=== PATIENT | female | born 2000 | race Caucasian/White ===

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

== ENCOUNTER 2023-02-10 11:11 | Emergency (ER) | payer OTHER ==
[2023-02-10 11:54] VITALS: RESP 18; TEMP 98.4
[2023-02-10] MEDS ORDERED: ONDANSETRON 4 MG/2 ML VIAL IVP STA (12:53)
[2023-02-10] MEDS ORDERED: KETOROLAC 15 MG/ML 1 ML VIAL IVP STA (12:53)
[2023-02-10] MEDS ORDERED: SODIUM CHLORIDE 0.9% 1,000 ML IV STA (12:53)
[2023-02-10 13:26] LABS: Basophils % (A) 0 %; Eosinophils # (A) 0.2 k/uL (0-0.7); Eosinophils % (A) 2 %; HCT 38.9 % (34.0-46.0); HGB 13.1 gm/dL (11.4-16.0); Lymphocytes # (A) 2.3 k/uL (1.0-4.8); Lymphocytes % (A) 30 %; MCH 29.5 pg (25.0-35.0); MCHC 33.7 g/dL (31.0-37.0); MCV 87.5 fL (80.0-100.0); Mean Platelet Volume 8.1; Monocytes # (A) 0.4 k/uL (0-1.0); Monocytes % (A) 5 %; Neutrophils # (A) 4.6 k/uL (1.3-7.7); Neutrophils % (A) 61 %; Platelet Count 322 k/uL (150-450); RBC 4.45 m/uL (3.80-5.40); RDW 11.9 % (11.5-15.5); WBC 7.6 k/uL (4.0-11.0)
[2023-02-10 13:49] LABS: ALT 14 U/L (4-34); AST 20 U/L (14-36); African American GFR (CKD) >90 (>60 ml/min/1.73 sqM); Alkaline Phosphatase 79 U/L (38-126); Amylase 66 U/L (30-110); Anion Gap 12 mmol/L; Blood Urea Nitrogen 8 mg/dL (7-17); Calcium 9.3 mg/dL (8.4-10.2); Carbon Dioxide 24 mmol/L (22-30); Chloride 103 mmol/L (98-107); Glucose 112 mg/dL (74-99); Lipase 119 U/L (23-300); Non-African American GFR(CKD) >90 (>60 ml/min/1.73 sqM); Sodium 139 mmol/L (137-145); Total Bilirubin 0.7 mg/dL (0.2-1.3); Total Protein 7.2 g/dL (6.3-8.2)
[2023-02-10 14:58] LABS: Amorphous Sediment,Urine Rare /hpf; Appearance,Urine Turbid (Clear); Bacteria,Urine Occasional /hpf; Bilirubin,Urine Negative (Negative); Blood,Urine Large (Negative); Color,Urine Yellow; Glucose,Urine (UA) Negative (Negative); Ketones,Urine 1+ (Negative); Leukocyte Esterase,Urine Negative (Negative); Mucus,Urine Many /hpf; Nitrite,Urine Positive (Negative); PH, Urine 5.5 (5.0-8.0); Protein,Urine Trace (Negative); RBC,Urine 3 /hpf (0-5); Specific Gravity,Urine 1.024 (1.001-1.035); Squamous Epithelial Cell,Urine 1 /hpf (0-4); Urobilinogen,Urine <2.0 mg/dL (<2.0); WBC,Urine 10 /hpf (0-5)
[2023-02-10] MEDS ORDERED: cefTRIAXone IN SWFI 1,000 MG/10 ML SYRINGE IVP STA (15:10)
[2023-02-10] MEDS ORDERED: ONDANSETRON 4 MG ODT STARTER PACK 2 TAB BTL PO STA (15:11)
--- NOTE | 2023-02-10 15:13 | ED ---
Nausea/Vomiting/Diarrhea HPI - General Chief complaint: Nausea/Vomiting/Diarrhea Stated complaint: cough throat pain nausea Time Seen by Provider: 02/10/23 12:19 Source: patient, RN notes reviewed Mode of arrival: ambulatory Limitations: no limitations - History of Present Illness Initial comments: This is a 22-year-old female who presents to the emergency department for a cough, congestion, sore throat, nausea, vomiting, and reduced appetite. She ref ers to her symptoms as "COVID symptoms". Denies any fevers, chills, or sick contacts. Also reports body aches. Her largest concern is about the nausea and not being able to eat, she feels very dehydrated and had a presyncopal episode yesterday as a result. She has had multiple negative home Covid tests. MD complaint: nausea, vomiting - Related Data Home Medications Medication Instructions Recorded Confirmed Ibuprofen [Motrin Ib] 400 mg PO Q8H PRN 11/15/20 12/21/20 Previous Rx's Medication Instructions Recorded Amoxicillin 875 mg PO Q12HR #20 tablet 12/21/20 Ondansetron Odt [Zofran Odt] 4 mg PO Q8HR PRN #15 tab 02/10/23 Sulfamethox-Tmp 800-160Mg [Bactrim 1 tab PO Q12HR 7 Days #14 tab 02/10/23 DS 800-160 mg] Allergies Allergy/AdvReac Type Severity Reaction Status Date / Time animal dander Allergy Rash/Hives Verified 12/21/20 13:38 Review of Systems ROS Statement: Those systems with pertinent positive or pertinent negative responses have been documented in the HPI. ROS Other: All systems not noted in ROS Statement are negative. Past Medical History Past Medical History: Asthma History of Any Multi-Drug Resistant Organisms: None Reported Past Surgical History: No Surgical Hx Reported Past Psychological History: Anxiety, Bipolar, Depression, Panic Disorder, PTSD Smoking Status: Vaper Past Alcohol Use History: None Reported Past Drug Use History: None Reported General Exam Limitations: no limitations General appearance: alert, in no apparent distress Head exam: Present: atraumatic, normocephalic, normal inspection Respiratory exam: Present: normal lung sounds bilaterally. Absent: respiratory distress, wheezes, rales, rhonchi, stridor Cardiovascular Exam: Present: regular rate, normal rhythm, normal heart sounds. Absent: systolic murmur, diastolic murmur, rubs, gallop, clicks GI/Abdominal exam: Present: soft, normal bowel sounds. Absent: distended, tenderness, guarding, rebound, rigid Neurological exam: Present: alert, oriented X3, CN II-XII intact Psychiatric exam: Present: normal affect, normal mood Skin exam: Present: warm, dry, intact, normal color. Absent: rash Course Vital Signs 02/10/23 02/10/23 11:50 14:52 Temperature 98.4 F Pulse Rate 89 67 Respiratory 18 18 Rate Blood Pressure 114/79 99/66 O2 Sat by Pulse 99 98 Oximetry Medical Decision Making - Medical Decision Making This is a 22-year-old female who presents to the emergency department for nausea, vomiting, coughing, and congestion. Was pt. sent in by a medical professional or institution? @ -No Did you speak to anyone other than the patient for history? @ -No Did you review nursing and triage notes? @ -Yes, and I agree, it is accurate with regards to the patient's symptoms. Were old charts reviewed? @ -No Differential Diagnosis? @ -Differential Nausea and Vomiting: Gastroenteritis, cholecystitis, appendicitis, pancreatitis, migraine, benign positional vertigo, food borne illness, pyelonephritis, irritable bowel syndrome, influenza, Covid, GERD, incarcerated hernia, intestinal obstruction, this is not meant to be an all-inclusive list. EKG interpreted by me (3pts min.)? @ -Not obtained X-rays interpreted by me (1pt min.)? @ -Not obtained CT interpreted by me (1pt min.)? @ -Not obtained U/S interpreted by me (1pt. min.)? @ -Not obtained What testing was considered but not performed? (CT, X-rays, U/S, labs)? Why? @ -None What meds were considered but not given? Why? @ -None Did you discuss the management of the patient with other professionals? @ -No Did you reconcile home meds? @ -No Was smoking cessation discussed for >3mins.? @ -No Was critical care preformed (if so, how long)? @ -No Were there social determinants of health that impacted care today? How? (Homelessness, low income, unemployed, alcoholism, drug addiction, transportation, low edu. Level, literacy, decrease access to med. care, snf, rehab)? @ -No Was there de-escalation of care discussed even if they declined? (Discuss DNR or withdrawal of care, Hospice)? @ -No What co-morbidities impacted this encounter? (DM, HTN, Smoking, COPD, CAD, Cancer, CVA, Hep., AIDS, mental health diagnosis, sleep apnea, morbid obesity)? @ -Asthma Was patient admitted / discharged? @ -Discharged. Lab work obtained and found to be unremarkable. Covid, influenza, and RSV testing were negative. Heterophile negative. Urinalysis is consistent with infection. Urine sent for culture. Her symptoms were well co ntrolled with IV fluids, Toradol, and Zofran. She was given a dose of ceftriaxone in the emergency department prior to discharge. Prescription for Bactrim and Zofran provided with dosing instructions reviewed. She is advised to slowly advance her diet as tolerated and remain well-hydrated. Patient otherwise discharged home in stable condition. Undiagnosed new problem with uncertain prognosis? @ -None Drug Therapy requiring intensive monitoring for toxicity (Heparin, Nitro, Insulin, Cardizem)? @ -None Were any procedures done? @ -None Diagnosis/symptom? @ -UTI, nausea/vomiting, viral URI Acute, or Chronic, or Acute on Chronic? @ -Acute Uncomplicated (without systemic symptoms) or Complicated (systemic symptoms)? @ -Uncomplicated Side effects of treatment? @ -None Exacerbation, Progression, or Severe Exacerbation] @ -Not applicable Poses a threat to life or bodily function? @ -No Return precautions reviewed in depth, the patient is instructed to return to the emergency department with any new, worsening, or concerning symptoms. Patient verbalized understanding. This case was discussed in detail with the attending ED physician, Dr. Polk. Presentation, findings, and treatment plan discussed in detail as well. - Lab Data Result diagrams: 02/10/23 13:02 02/10/23 13:02 Lab Results 02/10/23 02/10/23 02/10/23 Range/Units 13:02 13: 13:02 WBC 7.6 (4.0-11.0) k/uL RBC 4.45 (3.80-5.40) m/uL Hgb 13.1 (11.4-16.0) gm/dL Hct 38.9 (34.0-46.0) % MCV 87.5 (80.0-100.0) fL MCH 29.5 (25.0-35.0) pg MCHC 33.7 (31.0-37.0) g/dL RDW 11.9 (11.5-15.5) % Plt Count 322 (150-450) k/uL MPV 8.1 Neutrophils % 61 % Lymphocytes % 30 % Monocytes % 5 % Eosinophils % 2 % Basophils % 0 % Neutrophils # 4.6 (1.3-7.7) k/uL Lymphocytes # 2.3 (1.0-4.8) k/uL Monocytes # 0.4 (0-1.0) k/uL Eosinophils # 0.2 (0-0.7) k/uL Basophils # 0.0 (0-0.2) k/uL Sodium (137-145) mmol/L Potassium (3.5-5.1) mmol/L Chloride (98-107) mmol/L Carbon Dioxide (22-30) mmol/L Anion Gap mmol/L BUN (7-17) mg/dL Creatinine (0.52-1.04) mg/dL Est GFR (CKD-EPI)AfAm (>60 ml/min/1.73 sqM) Est GFR (CKD-EPI)NonAf (>60 ml/min/1.73 sqM) Glucose (74-99) mg/dL Calcium (8.4-10.2) mg/dL Total Bilirubin (0.2-1.3) mg/dL AST (14-36) U/L ALT (4-34) U/L Alkaline Phosphatase (38-126) U/L Total Protein (6.3-8.2) g/dL Albumin (3.5-5.0) g/dL Amylase (30-110) U/L Lipase (23-300) U/L Urine Color Yellow Urine Appearance Turbid H (Clear) Urine pH 5.5 (5.0-8.0) Ur Specific [place] 1.024 (1.001-1.035) Urine Protein Trace H (Negative) Urine Glucose (UA) Negative (Negative) Urine Ketones 1+ H (Negative) Urine Blood Large H (Negative) Urine Nitrite Positive H (Negative) Urine Bilirubin Negative (Negative) Urine Urobilinogen <2.0 (<2.0) mg/dL Ur Leukocyte Esterase Negative (Negative) Urine RBC 3 (0-5) /hpf Urine WBC 10 H (0-5) /hpf Ur Squamous Epith Cells 1 (0-4) /hpf Amorphous Sediment Rare H (None) /hpf Urine Bacteria Occasional H (None) /hpf Urine Mucus Many H (None) /hpf Urine HCG, Qual (Not Detectd) Heterophile Antibody Negative (Negative) Influenza Type A (PCR) (Not Detectd) Influenza Type B (PCR) (Not Detectd) RSV (PCR) (Not Detectd) SARS-CoV-2 (PCR) (Not Detectd) Group A Strep (PCR) (Not Detectd) 02/10/23 02/10/23 02/10/23 Range/Units 13:02 13:02 13:02 WBC (4.0-11.0) k/uL RBC (3.80-5.40) m/uL Hgb (11.4-16.0) gm/dL Hct (34.0-46.0) % MCV (80.0-100.0) fL MCH (25.0-35.0) pg MCHC (31.0-37.0) g/dL RDW (11.5-15.5) % Plt Count (150-450) k/uL MPV Neutrophils % % Lymphocytes % % Monocytes % % Eosinophils % % Basophils % % Neutrophils # (1.3-7.7) k/uL Lymphocytes # (1.0-4.8) k/uL Monocytes # (0-1.0) k/uL Eosinophils # (0-0.7) k/uL Basophils # (0-0.2) k/uL Sodium 139 (137-145) mmol/L Potassium 4.0 (3.5-5.1) mmol/L Chloride 103 (98-107) mmol/L Carbon Dioxide 24 (22-30) mmol/L Anion Gap 12 mmol/L BUN 8 (7-17) mg/dL Creatinine 0.59 (0.52-1.04) mg/dL Est GFR (CKD-EPI)AfAm >90 (>60 ml/min/1.73 sqM) Est GFR (CKD-EPI)NonAf >90 (>60 ml/min/1.73 sqM) Glucose 112 H (74-99) mg/dL Calcium 9.3 (8.4-10.2) mg/dL Total Bilirubin 0.7 (0.2-1.3) mg/dL AST 20 (14-36) U/L ALT 14 (4-34) U/L Alkaline Phosphatase 79 (38-126) U/L Total Protein 7.2 (6.3-8.2) g/dL Albumin 4.0 (3.5-5.0) g/dL Amylase 66 (30-110) U/L Lipase 119 (23-300) U/L Urine Color Urine Appearance (Clear) Urine pH (5.0-8.0) Ur Specific [place] (1.001-1.035) Urine Protein (Negative) Urine Glucose (UA) (Negative) Urine Ketones (Negative) Urine Blood (Negative) Urine Nitrite (Negative) Urine Bilirubin (Negative) Urine Urobilinogen (<2.0) mg/dL Ur Leukocyte Esterase (Negative) Urine RBC (0-5) /hpf Urine WBC (0-5) /hpf Ur Squamous Epith Cells (0-4) /hpf Amorphous Sediment (None) /hpf Urine Bacteria (None) /hpf Urine Mucus (None) /hpf Urine HCG, Qual (Not Detectd) Heterophile Antibody (Negative) Influenza Type A (PCR) Not Detected (Not Detectd) Influenza Type B (PCR) Not Detected (Not Detectd) RSV (PCR) Not Detected (Not Detectd) SARS-CoV-2 (PCR) Not Detected (Not Detectd) Group A Strep (PCR) NOT DETECTED (Not Detectd) 02/10/23 Range/Units 13:02 WBC (4.0-11.0) k/uL RBC (3.80-5.40) m/uL Hgb (11.4-16.0) gm/dL Hct (34.0-46.0) % MCV (80.0-100.0) fL MCH (25.0-35.0) pg MCHC (31.0-37.0) g/dL RDW (11.5-15.5) % Plt Count (150-450) k/uL MPV Neutrophils % % Lymphocytes % % Monocytes % % Eosinophils % % Basophils % % Neutrophils # (1.3-7.7) k/uL Lymphocytes # (1.0-4.8) k/uL Monocytes # (0-1.0) k/uL Eosinophils # (0-0.7) k/uL Basophils # (0-0.2) k/uL Sodium (137-145) mmol/L Potassium (3.5-5.1) mmol/L Chloride (98-107) mmol/L Carbon Dioxide (22-30) mmol/L Anion Gap mmol/L BUN (7-17) mg/dL Creatinine (0.52-1.04) mg/dL Est GFR (CKD-EPI)AfAm (>60 ml/min/1.73 sqM) Est GFR (CKD-EPI)NonAf (>60 ml/min/1.73 sqM) Glucose (74-99) mg/dL Calcium (8.4-10.2) mg/dL Total Bilirubin (0.2-1.3) mg/dL AST (14-36) U/L ALT (4-34) U/L Alkaline Phosphatase (38-126) U/L Total Protein (6.3-8.2) g/dL Albumin (3.5-5.0) g/dL Amylase (30-110) U/L Lipase (23-300) U/L Urine Color Urine Appearance (Clear) Urine pH (5.0-8.0) Ur Specific [place] (1.001-1.035) Urine Protein (Negative) Urine Glucose (UA) (Negative) Urine Ketones (Negative) Urine Blood (Negative) Urine Nitrite (Negative) Urine Bilirubin (Negative) Urine Urobilinogen (<2.0) mg/dL Ur Leukocyte Esterase (Negative) Urine RBC (0-5) /hpf Urine WBC (0-5) /hpf Ur Squamous Epith Cells (0-4) /hpf Amorphous Sediment (None) /hpf Urine Bacteria (None) /hpf Urine Mucus (None) /hpf Urine HCG, Qual Not Detected (Not Detectd) Heterophile Antibody (Negative) Influenza Type A (PCR) (Not Detectd) Influenza Type B (PCR) (Not Detectd) RSV (PCR) (Not Detectd) SARS-CoV-2 (PCR) (Not Detectd) Group A Strep (PCR) (Not Detectd) Disposition Clinical Impression: UTI (urinary tract infection), Nausea and vomiting Disposition: HOME SELF-CARE Instructions (If sedation given, give patient instructions): Urinary Tract Infection in Women (ED), Acute Nausea and Vomiting (ED) Additional Instructions: Return to the emergency department with any new, worsening, or concerning symptoms. Take the antibiotic as prescribed for 7 days. You can take the Zofran up to every 8 hours as needed for nausea and vomiting. Slowly advance your diet as tolerated and remain well-hydrated. Follow up with your primary care provider in 1-2 days. Prescriptions: Sulfamethox-Tmp 800-160Mg [Bactrim DS 800-160 mg] 1 tab PO Q12HR 7 Days #14 tab Ondansetron Odt [Zofran Odt] 4 mg PO Q8HR PRN #15 tab PRN Reason: Nausea And Vomiting Is patient prescribed a controlled substance at d/c from ED?: No Referrals: None,Stated [Primary Care Provider] - 1-2 days
[2023-02-10 15:15] VITALS: BP 99/66; PULSE 67
== END 2023-02-10 15:30 | disposition home or self-care (01) ==
LOC: EC 11:11
DX: N39.0 Urinary tract infection, site not specified (principal); J06.9 Acute upper respiratory infection, unspecified; B96.20 Unspecified Escherichia coli [E. coli] as the cause of diseases classified elsewhere; J45.909 Unspecified asthma, uncomplicated; F17.290 Nicotine dependence, other tobacco product, uncomplicated; Z20.822 Contact with and (suspected) exposure to COVID-19; Z91.09 Other allergy status, other than to drugs and biological substances
CPT/HCPCS: 36415; 87651; 80053; 82150; 83690; 85025; 86308; 81001; 81025; 87086; 87077; 87186; 87636; 99284; 96374; 96375 ×2; 96361; J2405; J0696; J1885; S0119

== ENCOUNTER 2023-09-04 23:04 | Inpatient (IN) | payer MEDICAID, OTHER ==
--- NOTE | 2023-09-05 00:10 | ED ---
Psych HPI - General Chief Complaint: Psychiatric Symptoms Stated Complaint: mental health petition Time Seen by Provider: 09/04/23 23:59 Source: patient Mode of arrival: ambulatory - History of Present Illness Initial Comments: 23-year-old female presenting with suicidal ideation. Patient states that she has history of bipolar disorder. She states that she was talking to her life sciences manager when she started to express thoughts of wanting to harm herself, they called the police to have her brought here for mental health evaluation. She denies any plans to harm herself. Denies any homicidal ideation. She denies any physical symptoms today. - Related Data Home Medications Medication Instructions Recorded Confirmed Ibuprofen [Motrin Ib] 400 mg PO Q8H PRN 11/15/20 12/21/20 Previous Rx's Medication Instructions Recorded Amoxicillin 875 mg PO Q12HR #20 tablet 12/21/20 Ondansetron Odt [Zofran Odt] 4 mg PO Q8HR PRN #15 tab 02/10/23 Sulfamethox-Tmp 800-160Mg [Bactrim 1 tab PO Q12HR 7 Days #14 tab 02/10/23 DS 800-160 mg] Allergies Allergy/AdvReac Type Severity Reaction Status Date / Time animal dander Allergy Rash/Hives Verified 12/21/20 13:38 tree nut Allergy Rash/Hives Verified 09/04/23 23:10 Review of Systems ROS Statement: Those systems with pertinent positive or pertinent negative responses have been documented in the HPI. ROS Other: All systems not noted in ROS Statement are negative. Past Medical History Past Medical History: Asthma History of Any Multi-Drug Resistant Organisms: None Reported Past Surgical History: No Surgical Hx Reported Past Psychological History: Anxiety, Bipolar, Depression, Panic Disorder, PTSD Smoking Status: Vaper Past Alcohol Use History: None Reported Past Drug Use History: None Reported General Exam Limitations: no limitations General appearance: alert, in no apparent distress Head exam: Present: atraumatic, normocephalic Eye exam: Present: normal appearance, EOMI Neck exam: Present: normal inspection. Absent: meningismus Respiratory exam: Absent: respiratory distress Neurological exam: Present: alert, oriented X3 Psychiatric exam: Present: normal affect, normal mood Skin exam: Present: warm, dry Course Vital Signs 09/04/23 23:06 Temperature 98.3 F Pulse Rate 104 H Respiratory 20 Rate Blood Pressure 137/93 O2 Sat by Pulse 97 Oximetry Medical Decision Making - Medical Decision Making Was pt. sent in by a medical professional or institution (, JAMILA, MECHANICAL ARTIST, urgent care, hospital, or fdc...) When possible be specific @ -No Did you speak to anyone other than the patient for history (EMS, parent, family, police, friend...)? What history was obtained from this source @ -No Did you review nursing and triage notes (agree or disagree)? Why? @ -I reviewed and agree with nursing and triage notes Were old charts reviewed (outside hosp., previous admission, EMS record, old EKG, old radiological studies, urgent care reports/EKG's, fdc records)? Report findings @ -No old charts were reviewed Differential Diagnosis (chest pain, altered mental status, abdominal pain women, abdominal pain men, vaginal bleeding, weakness, fever, dyspnea, syncope, headache, dizziness, GI bleed, back pain, seizure, CVA, palpatations, mental health, musculoskeletal)? @ -Differential Mental Health Depression, anxiety, bipolar, psychosis, schizophrenia, borderline personality, situational depression, adjustment disorder, behavioral disorder, brain tumor, malingering, substance abuse, encephalopathy, medication reaction, dementia, hypothyroidism, degenerative neurologic disorder, lupus.... This is not meant to be all-inclusive list EKG interpreted by me (3pts min.). @ -As above X-rays interpreted by me (1pt min.). @ -None done CT interpreted by me (1pt min.). @ -None done U/S interpreted by me (1pt. min.). @ -None done What testing was considered but not performed or refused? (CT, X-rays, U/S, labs)? Why? @ -None What meds were considered but not given or refused? Why? @ -None Did you discuss the management of the patient with other professionals (professionals i.e. , JAMILA, MECHANICAL ARTIST, lab, RT, psych nurse, social services analyst, scientific informatics project leader, teacher, traffic police officer, ed case manager)? Give summary @ -Spoke with EPS nurse who recommends admission Was smoking cessation discussed for >3mins.? @ -No Was critical care preformed (if so, how long)? @ -No Were there social determinants of health that impacted care today? How? (Homelessness, low income, unemployed, alcoholism, drug addiction, transportation, low edu. Level, literacy, decrease access to med. care, skilled nursing, rehab)? @ -No Was there de-escalation of care discussed even if they declined (Discuss DNR or withdrawal of care, Hospice)? DNR status @ -No What co-morbidities impacted this encounter? (DM, HTN, Smoking, COPD, CAD, Cancer, CVA, ARF, Chemo, Hep., AIDS, mental health diagnosis, sleep apnea, mor bid obesity)? @ -None Was patient admitted / discharged? Hospital course, mention meds given and route, prescriptions, significant lab abnormalities, going to OR and other pertinent info. @ -23-year-old female presenting with chief complaint of suicidal ideation. Evaluated by EPS who recommends admission. She is agreeable with this plan. My attending is Dr. Costa. Undiagnosed new problem with uncertain prognosis? @ -No Drug Therapy requiring intensive monitoring for toxicity (Heparin, Nitro, Insulin, Cardizem)? @ -No Were any procedures done? @ -No Diagnosis/symptom? @ -Suicidal ideation Acute, or Chronic, or Acute on Chronic? @ -Acute Uncomplicated (without systemic symptoms) or Complicated (systemic symptoms)? @ -Complicated Side effects of treatment? @ -No Exacerbation, Progression, or Severe Exacerbation? @ -No Poses a threat to life or bodily function? How? (Chest pain, [place], [place], pneumonia, PE, COPD, DKA, ARF, appy, cholecystitis, CVA, Diverticulitis, Homicidal, Suicid al, threat to staff... and all critical care pts) @ -Yes Disposition Clinical Impression: Suicidal ideation Disposition: ADMITTED IP TO THIS HOSP Condition: Fair Referrals: Armando Lopez MD [Primary Care Provider] - 1-2 days Time of Disposition: 02:27
[2023-09-05] MEDS ORDERED: MAG HYDROX/AL HYDROX/SIMETH 355 ML BOTTLE PO PRN (03:48)
[2023-09-05] MEDS ORDERED: hydrOXYzine HCL 50 MG/ML 1 ML VIAL IM PRN (03:48)
[2023-09-05] MEDS ORDERED: MAGNESIUM HYDROXIDE 2,400 MG/30 ML CUP PO PRN (03:48)
[2023-09-05] MEDS ORDERED: IBUPROFEN 600 MG TAB PO PRN (03:48)
[2023-09-05] MEDS ORDERED: hydrOXYzine pamoate 25 MG CAP PO PRN (04:01)
[2023-09-05] MEDS ORDERED: traZODone HCL 50 MG TAB PO PRN (04:03)
[2023-09-05] MEDS ORDERED: ALBUTEROL INHALER 60 PUFF/8 GM INHALER (MHU) INHALATION PRN (04:09)
[2023-09-05 06:39] LABS: Amorphous Sediment,Urine Rare /hpf; Appearance,Urine Cloudy (Clear); Bacteria,Urine Many /hpf; Bilirubin,Urine Negative (Negative); Blood,Urine Small (Negative); Color,Urine Light Yellow; Glucose,Urine (UA) Negative (Negative); Hyaline Casts,Urine 1 /lpf (0-2); Ketones,Urine Negative (Negative); Leukocyte Esterase,Urine Negative (Negative); Mucus,Urine Occasional /hpf; Nitrite,Urine Positive (Negative); Protein,Urine Trace (Negative); RBC,Urine <1 /hpf (0-5); Specific Gravity,Urine 1.024 (1.001-1.035); Squamous Epithelial Cell,Urine 2 /hpf (0-4); Urobilinogen,Urine <2.0 mg/dL (<2.0); WBC,Urine 11 /hpf (0-5)
[2023-09-05 06:43] LABS: Amphetamine Screen,Urine Detected (NotDetected); Barbiturate Screen,Urine Not Detected (NotDetected); Benzodiazepines Screen,Urine Not Detected (NotDetected); Cocaine Screen,Urine Not Detected (NotDetected); Methadone Screen, Urine Not Detected (NotDetected); Opiate Screen,Urine Detected (NotDetected); Oxycodone Screen, Urine Not Detected (NotDetected); Phencyclidine Screen,Urine Not Detected (NotDetected); Tricyclic Antidepressant,Urine Not Detected (NotDetected); Urn Cannabinoid Scrn Not Detected (NotDetected)
[2023-09-05] MEDS: NICOTINE 14MG/24HR PATCH TRANSDERM SCH (09:18)
[2023-09-05 09:32] LABS: Basophils % (A) 0 %; Eosinophils # (A) 0.2 k/uL (0-0.7); Eosinophils % (A) 2 %; HCT 43.1 % (34.0-46.0); HGB 13.9 gm/dL (11.4-16.0); Lymphocytes # (A) 2.3 k/uL (1.0-4.8); Lymphocytes % (A) 29 %; MCH 30.1 pg (25.0-35.0); MCHC 32.3 g/dL (31.0-37.0); MCV 93.1 fL (80.0-100.0); Mean Platelet Volume 8.6; Monocytes # (A) 0.4 k/uL (0-1.0); Monocytes % (A) 5 %; Neutrophils % (A) 62 %; Platelet Count 235 k/uL (150-450); RBC 4.63 m/uL (3.80-5.40); RDW 12.9 % (11.5-15.5)
[2023-09-05 10:03] LABS: ALT 13 U/L (4-34); AST 20 U/L (14-36); African American GFR (CKD) >90 (>60 ml/min/1.73 sqM); Albumin 4.5 g/dL (3.5-5.0); Alkaline Phosphatase 76 U/L (38-126); Anion Gap 7 mmol/L; Blood Urea Nitrogen 14 mg/dL (7-17); Calcium 9.6 mg/dL (8.4-10.2); Carbon Dioxide 24 mmol/L (22-30); Chloride 107 mmol/L (98-107); Glucose 97 mg/dL (74-99); Non-African American GFR(CKD) >90 (>60 ml/min/1.73 sqM); Potassium 4.5 mmol/L (3.5-5.1); Sodium 138 mmol/L (137-145); Total Bilirubin 0.7 mg/dL (0.2-1.3); Total Protein 7.5 g/dL (6.3-8.2)
[2023-09-05] MEDS: lamoTRIgine 25 MG TAB PO SCH (14:13)
--- NOTE | 2023-09-05 14:13 | P.HP ---
Psychiatric H&P - . H&P Date: 09/05/23 History & Physical: Allergies Allergy/AdvReac Type Severity Reaction Status Date / Time tree nut Allergy Severe Anaphylaxis Verified 09/05/23 05:20 animal dander Allergy Rash/Hives Verified 09/05/23 05:20 Vital Signs Temp 97.9 F 09/05/23 05:13 Pulse 89 09/05/23 05:13 Resp 20 09/05/23 05:13 BP 122/56 09/05/23 05:13 Pulse Ox 98 09/05/23 05:13 FiO2 Intake & Output 09/04/23 09/05/23 09/05/23 18:59 06:59 18:59 Weight 89.2 kg Laboratory Last Values Urine Color Light Yellow 09/05/23 06:05 Urine Appearance Cloudy (Clear) H 09/05/23 06:05 Urine pH 6.0 (5.0-8.0) 09/05/23 06:05 Ur Specific [place] 1.024 (1.001-1.035) 09/05/23 06:05 Urine Protein Trace (Negative) H 09/05/23 06:05 Urine Glucose (UA) Negative (Negative) 09/05/23 06:05 Urine Ketones Negative (Negative) 09/05/23 06:05 Urine Blood Small (Negative) H 09/05/23 06:05 Urine Nitrite Positive (Negative) H 09/05/23 06:05 Urine Bilirubin Negative (Negative) 09/05/23 06:05 Urine Urobilinogen <2.0 mg/dL (<2.0) 09/05/23 06:05 Ur Leukocyte Esterase Negative (Negative) 09/05/23 06:05 Urine RBC <1 /hpf (0-5) 09/05/23 06:05 Urine WBC 11 /hpf (0-5) H 09/05/23 06:05 Ur Squamous Epith Cells 2 /hpf (0-4) 09/05/23 06:05 Amorphous Sediment Rare /hpf (None) H 09/05/23 06:05 Urine Bacteria Many /hpf (None) H 09/05/23 06:05 Hyaline Casts 1 /lpf (0-2) 09/05/23 06:05 Urine Mucus Occasional /hpf (None) H 09/05/23 06:05 Urine HCG, Qual Not Detected (Not Detectd) 09/05/23 06:05 Urine Opiates Screen Detected (NotDetected) H 09/05/23 06:05 Ur Oxycodone Screen Not Detected (NotDetected) 09/05/23 06:05 Urine Methadone Screen Not Detected (NotDetected) 09/05/23 06:05 Ur Barbiturates Screen Not Detected (NotDetected) 09/05/23 06:05 U Tricyclic Antidepress Not Detected (NotDetected) 09/05/23 06:05 Ur Phencyclidine Scrn Not Detected (NotDetected) 09/05/23 06:05 Ur Amphetamines Screen Detected (NotDetected) H 09/05/23 06:05 U Methamphetamines Scrn Not Detected (NotDetected) 09/05/23 06:05 U Benzodiazepines Scrn Not Detected (NotDetected) 09/05/23 06:05 Urine Cocaine Screen Not Detected (NotDetected) 09/05/23 06:05 U Marijuana (THC) Screen Not Detected (NotDetected) 09/05/23 06:05 SARS-CoV-2 (PCR) Not Detected (Not Detectd) 09/05/23 02:26 09/05/23 09:01 IDENTIFYING DATA: Patient is a 23 year old female, who is engaged, and lives with her fiance in an apartment. No children. 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 HPI: Patient presented to the hospital on 09/03. As per EPS note, "Pt was brought in and petitioned by police, " Dolly called the hospital who called police advising Dolly was suicidal. Dolly told me that she has bipolar disorder, got the urge to run away, then felt like she wanted to hurt herself, so she stopped and didn't know what to do. Advised that she was a bit suicidal but didn't think that she would act on anything. Told caller that she thought about driving her car into the water". Upon assessment pt is overly bright. Pt is cooperative in conversation. Pt seems to minimize her feelings about how police were contacted. Pt speaks about having coping skills but failed to use any today. SERGO Esqueda was on the phone with pt for approximately a half hour earlier today as she was speaking about how she was suicidal [place]. [place] were police found her. This RN contacted police and they were able to pick her up and bring her to the hospital. Pt states that she is very impulsive and fears that she would harm herself. When asked if she felt safe to return home she said, "I don't know". She claims that she has a in appetite and only eating about a meal a day. She states that her sleep is lacking and she has been having nightmares. Pt had suicidal thought prior to arrival to ed, but now presents as overly bright and denying SI but still fears she will harm herself. She states she attempted suicide in the past, 1.5 years ago by cutting. Denies HI, hallucinations, or delusions. Pt has multiple life stressors including breast cancer screenings, financial issues, caring for brother and mother, her fiance has not had a job in a few months. She is feeling burnt out as work. Once pt started to speak about her life stressors she then became tearful. Pt does admit that when she was driving she felt the urge to crash into something or into the water. Pt does have support in her finance but she feels like a burden when discussing anything about her, and she just holds in her emotions. Pt states that she uses marijuana occasionally, drinks rarely. Pt does admit to trying shrooms, DMT, and acid about 4 years ago. Pt is open with [facility] and starts on September 14. Once being told about admission, pt denies ever saying that she was going to drive into the river. Pt took time to process and ask questions, and signed self in for treatment. " Upon todays assessment, she states that she was feeling very overwhelmed, and could not get ahold of any of her supports. So she called the hospital, who sent the police to her. She claims that she told the person on the phone that she had feelings that she was going to get hurt, or something bad was going to happen. She claims that she did not tell the police that she going to drive into the river. Stressors includes, her brother facing 2 felonies, and it is up to her to make sure he gets to court. She claims that she is getting tested for cancer, due to lumps in her breast, and her cancer markers came up "not good". Her fiance is unemployed, so all the financial stuff falls on her. She is not getting along with her parents, because they are addicts. She states that she is not having much anxiety today, or depression. She states her sleep is interrupted due to nightmares from her PTSD. She states her appetite is good. Patient denies any suicidal or homicidal ideations intent or plan. At this time patient denies any auditory or visual hallucinations. Patient denies any flight of ideas racing thoughts and increased in goal directed behavior. Patient admits to using a non niciotine vape. However, UDS was positive for opiates. PAST PSYCHIATRIC HISTORY: Patient states that she was diagnosed with bipolar 1 disorder 4 years ago. Patient takes buspar for anxiety, and has been "managing bipolar" herself. Patient was admitted last in [facility]. She is open with [facility]. Patient admits history of suicide attempts in the past by od. PMH:As per ER note ALLERGIES: as per EMR CHEMICAL DEPENDENCY HISTORY: as per HPI FAMILY PSYCHIATRIC/SUBSTANCE USE HISTORY: bipolar and ADHD SOCIAL HISTORY: Patient was born and raised in [place], [place]. 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 No kids. No legal problems. MENTAL STATUS EXAM: General Appearance: Patient appears to be stated age is alert, [directable, and attempts to cooperate]. Patient appears to have fair hygiene and grooming. Long hair, facial piercings, tattoos, dressed in casual clothing. Behavior: Patient is seated without any agitated behavior. fair eye contact Speech: Patient's speech is hyperverbal Mood/Affect: Patient reports their mood is improving, affect is congruent and constricted. Suicidality/Homicidality: Patient denies having any homicidal ideation intent or plan. Denies any suicidal ideations intent or plan Perceptions: Patient denies any visual hallucinations and denies any auditory hallucinations Though content/process: There is no evidence of any delusional thought content and thought process is linear and goal-directed. Memory and concentration: AOX3, grossly intact for the purposes of this session. Can spell "WORLD" backwards Judgment and insight: poor STRENGTHS/WEAKNESSES: strength is that patient is [resilient]. Weakness is that patient [has poor judgment and is impulsive] INTELLECT: [average] IMPRESSIONS: bipolar disorder, unspecified history of ptsd history of adhd PLAN: -Patient is admitted under [voluntary] status to MHU for stabilization of psychiatric symptoms and safety. Patient has signed [adult voluntary form and] [medication consent] and is placed in patient's chart. -Medications : Will start patient on lamictal 25mg bid for mood stabilization, buspar 10mg tid prn for anxiety, melatonin 6mg prn qhs for sleep. Patient was informed to watch for a rash and to let designer writer or nursing staff know. -Ativan [and Haldol] PRN for agitation/aggression -Patient was informed of the risks, benefits and side effects of the medication [and patient verbally consented to taking the medications. ] -Internal Medicine consult to perform medical evaluation and physical. -NRT - nonsmoker -SW on board for discharge planning. Encourage patient to participate in groups to work on coping skills. 09/05/23 13:40
[2023-09-05 15:38] LABS: Chol/HDL Ratio 2.52 Ratio; LDL Cholesterol,Calculated 87.1 mg/dL (0.0-131.0); VLDL Calculation 11.32 mg/dL (5.00-40.00)
--- NOTE | 2023-09-05 20:33 | CONS ---
CONSULTATION CHIEF COMPLAINT: Major depression and suicidal thoughts. HISTORY OF PRESENT ILLNESS: This is another admission for this 23-year-old female, who presented to the emergency room after being brought in by a friend who stated that she was suicidal. She was admitted to the psych service. In the emergency room, she had a drug screen positive for opiates and amphetamines. REVIEW OF SYSTEMS: Unremarkable. Past medical history, family history, personal and social histories are all otherwise unremarkable and noncontributory and can be found in her admitting summary. PHYSICAL EXAMINATION: VITAL SIGNS: Normal. CHEST: Clear. CARDIAC: Normal. ABDOMEN: Soft, nontender. IMPRESSION: 1. Major depression with suicidal thoughts. 2. Substance abuse. 3. Possible urinary tract infection. PLAN: Culture of the urine. At the present time, she has no symptoms. This may be asymptomatic bacteriuria. MMODL / IJN: [id number] /
[2023-09-05] MEDS: MELATONIN 3 MG TABLET PO SCH (20:45)
[2023-09-06] MEDS: busPIRone HCl 10 MG TAB PO PRN (09:51)
--- NOTE | 2023-09-06 10:30 | P.PN ---
Subjective Progress Note Date: 09/06/23 Principal diagnosis: IMPRESSIONS: bipolar disorder, unspecified history of ptsd history of adhd Patient Name: Dolly Bernabe Date of : [birth year] Patient Status: Inpatient Attending Provider: Ihsan Herrera Date: 09/06/23 09:01 Initialization Date: 09/05/23 09:01 Subjective data: The patient was seen chart was reviewed and case discussed with nursing staff Patient asked as to why her ADHD medications have not been started Patient reported that she probably better off without it since it might keep her more hyper while she is trying to focus in the group She reports that she called in to talk to someone while she was sitting in the parking lot and the police came over and lied about her being suicidal She states that she has been having some issues with her fianc and that she has been diagnosed with bipolar disorder She states that she is doing much better and that she is ready to go home Patient continues to minimize any issues or problems and overall remains pleasant in interaction FAMILY PSYCHIATRIC/SUBSTANCE USE HISTORY: bipolar and ADHD SOCIAL HISTORY: Patient was born and raised in [place], [place]. 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 No kids. No legal problems. MENTAL STATUS EXAM: General Appearance: Patient appears to be stated age is alert, . Patient appears to have fair hygiene and grooming. Long hair, facial piercings, tattoos, dressed in casual clothing. Behavior: Patient is seated without any agitated behavior. fair eye contact Speech: Patient's speech is hyperverbal Mood/Affect: Patient reports their mood is improving, affect is congruent and constricted. Suicidality/Homicidality: Patient reports that she was never suicidal and that the director of home health services lied about her condition patient denies having any homicidal ideation intent or plan. Denies any suicidal ideations intent or plan Perceptions: Patient denies any visual hallucinations and denies any auditory hallucinations Though content/process: There is no evidence of any delusional thought content and thought process is linear and goal-directed. Memory and concentration: AOX3, grossly intact for the purposes of this session. Can spell "WORLD" backwards Judgment and insight: poor patient continues to rationalize and intellectualize STRENGTHS/WEAKNESSES: strength is that patient is [resilient]. Weakness is that patient [has poor judgment and is impulsive] INTELLECT: [average] IMPRESSIONS: bipolar disorder, unspecified history of ptsd history of adhd PLAN: Agree with the current treatment plan -Patient is admitted under [voluntary] status to MHU for stabilization of psychiatric symptoms and safety. Patient has signed [adult voluntary form and] [medication consent] and is placed in patient's chart. -Medications : patient on lamictal 25mg bid for mood stabilization, buspar 10mg tid prn for anxiety, melatonin 6mg prn qhs for sleep. Patient was informed to watch for a rash and to let sports book writer or nursing staff know. -Ativan [and Haldol] PRN for agitation/aggression -Patient was informed of the risks, benefits and side effects of the medication -Internal Medicine consult to perform medical evaluation and physical. -NRT - nonsmoker -SW on board for discharge planning. Encourage patient to participate in groups to work on coping skills. 09/06/23 Yovani Malone MD Objective - Vital Signs Vital signs: Vital Signs Temp 97.9 F 09/06/23 06:14 Pulse 68 09/06/23 06:14 Resp 18 09/06/23 06:14 BP 108/73 09/06/23 06:14 Pulse Ox 99 09/06/23 06:14 FiO2 - Labs CBC & Chem 7: 09/05/23 09:01 09/05/23 09:01 Labs: Abnormal Lab Results - Last 24 Hours (Table) 09/05/23 Range/Units 09:01 HDL Cholesterol 64.60 H (40.00-60.00) mg/dL
--- NOTE | 2023-09-07 08:52 | P.PN ---
Subjective Progress Note Date: 09/07/23 Principal diagnosis: IMPRESSIONS: bipolar disorder, unspecified history of ptsd history of adhd Patient Name: Dolly Bernabe Date of : [birth year] Patient Status: Inpatient Attending Provider: Ihsan Herrera Date: 09/07/23 09:01 Initialization Date: 09/05/23 09:01 Subjective data: The patient was seen in her room where she had just woken up from sleep Patient states that he has no complaints or issues at this time She states that she is feeling much more positive She states that her depression has decreased and that emotionally she is feeling stronger She denies any suicidal ideations She denies any homicidal ideations She denies any auditory or visual hallucinations She states that she has been participating in the activities on the unit and is getting along well with the peers FAMILY PSYCHIATRIC/SUBSTANCE USE HISTORY: bipolar and ADHD SOCIAL HISTORY: Patient was born and raised in [place], [place]. 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 No kids. No legal problems. MENTAL STATUS EXAM: General Appearance: Patient appears to be stated age is alert, . Patient appears to have fair hygiene and grooming. Long hair, facial piercings, tattoos, dressed in casual clothing. Behavior: Patient is seated without any agitated behavior. fair eye contact Speech: Patient's speech is hyperverbal Mood/Affect: Patient reports their mood is improving, affect is congruent and constricted. Suicidality/Homicidality: Patient reports that she was never suicidal and that the tarp repairer lied about her condition patient denies having any homicidal ideation intent or plan. Denies any suicidal ideations intent or plan Perceptions: Patient denies any visual hallucinations and denies any auditory marquez llucinations Though content/process: There is no evidence of any delusional thought content and thought process is linear and goal-directed. Memory and concentration: AOX3, grossly intact for the purposes of this session. Can spell "WORLD" backwards Judgment and insight: poor patient continues to rationalize and intellectualize STRENGTHS/WEAKNESSES: strength is that patient is [resilient]. Weakness is that patient [has poor judgment and is impulsive] INTELLECT: [average] IMPRESSIONS: bipolar disorder, unspecified history of ptsd history of adhd PLAN: Agree with the current treatment plan -Patient is admitted under [voluntary] status to MHU for stabilization of psychiatric symptoms and safety. Patient has signed [adult voluntary form and] [medication consent] and is placed in patient's chart. -Medications : patient on lamictal 25mg bid for mood stabilization, buspar 10mg tid prn for anxiety, melatonin 6mg prn qhs for sleep. Patient was informed to watch for a rash and to let telegraphic typewriter operator chief or nursing staff know. -Ativan [and Haldol] PRN for agitation/aggression -Patient was informed of the risks, benefits and side effects of the medication -Internal Medicine consult to perform medical evaluation and physical. -NRT - nonsmoker -SW on board for discharge planning. Encourage patient to participate in groups to work on coping skills. 09/07/23 Yovani Malone MD Objective - Vital Signs Vital signs: Vital Signs Temp 97.9 F 09/07/23 06:38 Pulse 68 09/07/23 06:38 Resp 14 09/07/23 06:38 BP 95/61 09/07/23 06:38 Pulse Ox 98 09/07/23 06:38 FiO2 - Labs CBC & Chem 7: 09/05/23 09:01 09/05/23 09:01 Labs: Microbiology - Last 24 Hours (Table) 09/06/23 00:00 Urine Culture - Preliminary Urine,Voided Gram Neg Bacilli
[2023-09-07] MEDS: ACETAMINOPHEN TAB 325 MG TAB PO PRN (13:44)
[2023-09-07] MEDS: SULFAMETHOX-TMP 800-160MG 1 EACH TAB PO SCH (20:50)
--- NOTE | 2023-09-08 12:43 | P.PN ---
Progress Note - Text Progress Note Date: 09/08/23 Interval History: Patient was seen wandering the hallways and was directable and agreeable to sp stacia with writer technical publications in the office. Today, the patient states she is "klever". She states her weekend went well, and was quite bored with no groups. She is attending groups on the unit, and interacting appropriately with peers. She is not endorsing any problems with her mood or anxiety. She states that her appetite is good, and she is sleeping well at night. At this time patient denies any suicidal or homicidal ideations, intent or plan. Patient denies any auditory, visual hallucinations and denies any paranoia or delusions. Patient denies any side effects from the medications and has been compliant with meds. MENTAL STATUS EXAM: General Appearance: Patient appears to be stated age is alert, directable, and attempts to cooperate. Patient appears to have fair hygiene and grooming. Long hair, facial piercings, tattoos, dressed in casual clothing. Behavior: Patient is seated without any agitated behavior. fair eye contact Speech: Patient's speech is fluent and nonpressured Mood/Affect: Patient reports their mood is improving, affect is congruent and constricted. Suicidality/Homicidality: Patient denies having any homicidal ideation intent or plan. Denies any suicidal ideations intent or plan Perceptions: Patient denies any visual hallucinations and denies any auditory hallucinations Though content/process: There is no evidence of any delusional thought content and thought process is linear and goal-directed. Memory and concentration: AOX3, grossly intact for the purposes of this session. Judgment and insight: improving IMPRESSIONS: bipolar disorder, unspecified history of ptsd history of adhd PLAN: -Patient is admitted under voluntary status to [facility]HU for stabilization of psychiatric symptoms and safety. Patient has signed adult voluntary form and medication consent and is placed in patient's chart. -Medications : lamictal 25 mg bid for mood stabilization, buspar 10mg tid prn for anxiety, melatonin 6mg prn qhs for sleep. Patient was informed to watch for a rash and to let writer technical publications or nursing staff know. -Ativan and Haldol PRN for agitation/aggression -NRT - nonsmoker -SW on board for discharge planning. Encourage patient to participate in groups to work on coping skills. Likely discharge tomorrow
--- NOTE | 2023-09-09 06:31 | PN ---
PROGRESS NOTE DATE OF SERVICE: 09/06/2023 In the psych unit. CHIEF COMPLAINT: Possible urinary tract infection. HISTORY OF PRESENT ILLNESS: This lady has not had any symptoms of a UTI. She has had UTIs in the past that were asymptomatic by her own history. PHYSICAL EXAMINATION: CHEST: Clear. ABDOMEN: Soft, nontender. : Flanks nontender. IMPRESSION: Bacteriuria. PLAN: Treat with Bactrim DS. MMODL / IJN: [id number] /
[2023-09-09 07:05] VITALS: BP 88/54; PULSE 59; RESP 14; TEMP 98.2
--- NOTE | 2023-09-09 11:19 | P.DS ---
Providers Date of admission: 09/05/23 03:29 Expected date of discharge: 09/09/23 Attending physician: Ihsan Herrera MD Consults: 09/05/23 03:56 Consult Physician Routine Consulting Provider: Armando Lopez Consult Reason/Comments: mental health admission Do you want consulting provider notified?: Yes, Notify in am Primary care physician: Armando Lopez - Discharge Diagnosis(es) (1) Bipolar disorder, unspecified Current Visit: Yes Status: Acute Priority: High (2) History of posttraumatic stress disorder (PTSD) Current Visit: Yes Status: Acute Priority: Medium (3) History of ADHD Current Visit: Yes Status: Acute Priority: Medium Hospital Course: Admission HPI: Admission note was completed by script writer "Patient presented to the hospital on 09/03. As per EPS note, "Pt was brought in and petitioned by police, " Dolly called the hospital who called police advising Dolly was suicidal. Dolly told me that she has bipolar disorder, got the urge to run away, then felt like she wanted to hurt herself, so she stopped and didn't know what to do. Advised that she was a bit suicidal but didn't think that she would act on anything. Told caller that she thought about driving her car into the water". Upon assessment pt is overly bright. Pt is cooperative in conversation. Pt seems to minimize her feelings about how police were contacted. Pt speaks about having coping skills but failed to use any today. SERGO Esqueda was on the phone with pt for approximately a half hour earlier today as she was speaking about how she was suicidal and [place]. [place] her. This RN contacted police and they were able to pick her up and bring her to the hospital. Pt states that she is very impulsive and fears that she would harm herself. When asked if she felt safe to return home she said, "I don't know". She claims that she has a in appetite and only eating about a meal a day. She states that her sleep is lacking and she has been having nightmares. Pt had suicidal thought prior to arrival to ed, but now presents as overly bright and denying SI but still fears she will harm herself. She states she attempted suicide in the past, 1.5 years ago by cutting. Denies HI, hallucinations, or delusions. Pt has multiple life stressors including breast cancer screenings, financial issues, caring for brother and mother, her fiance has not had a job in a few months. She is feeling burnt out as work. Once pt started to speak about her life stressors she then became tearful. Pt does admit that when she was driving she felt the urge to crash into something or into the water. Pt does have support in her finance but she feels like a burden when discussing anything about her, and she just holds in her emotions. Pt states that she uses marijuana occasionally, drinks rarely. Pt does admit to trying shrooms, DMT, and acid about 4 years ago. Pt is open with [facility] therapy and starts on September 14. Once being told about admission, pt denies ever saying that she was going to drive into the river. Pt took time to process and ask questions, and signed self in for treatment. "Upon todays assessment, she states that she was feeling very overwhelmed, and could not get ahold of any of her supports. So she called the hospital, who sent the police to her. She claims that she told the person on the phone that she had feelings that she was going to get hurt, or something bad was going to happen. She claims that she did not tell the police that she going to drive into the river. Stressors includes, her brother facing 2 felonies, and it is up to her to make sure he gets to court. She claims that she is getting tested for cancer, due to lumps in her breast, and her cancer markers came up "not good". Her fiance is unemployed, so all the financial stuff falls on her. She is not getting along with her parents, because they are addicts. She states that she is not having much anxiety today, or depression. She states her sleep is interrupted due to nightmares from her PTSD. She states her appetite is good. Patient denies any suicidal or homicidal ideations intent or plan. At this time patient denies any auditory or visual hallucinations. Patient denies any flight of ideas racing thoughts and increased in goal directed behavior. Patient admits to using a non niciotine vape. However, UDS was positive for opiates." Hospital course: Upon admission to the unit patient was directable and agreeable to commence treatment and signed adult voluntary form. Patient got along well with other patients on the unit and followed unit protocol. Patient was compliant with the medications and denied any side effects throughout hospital course. Patient was started on [Lamictal 25 mg twice daily for mood stabilization/depression, patient was informed of a rash as a side effect potentially, she did not observe this during hospitalization. BuSpar twice daily as needed for anxiety, melatonin 6 mg nightly for sleep. Patient spoke of her stressors and engaged in therapy both group and individual. Patient was also seen by medical team for history and physical exam. Throughout the course of the hospitalization patient gradually improved with regards to mood, anxiety, suicidal thoughts, sleep and became more future oriented with improved insight and judgment. On the day of discharge patient denied any suicidal or homicidal ideations intent or plan denied any auditory or visual hallucinations. Patient endorsed wanting to live for her future and her health. The patient denied any access to guns or weapons. Patient denied any paranoia and did not endorse any delusions. Patient does not have a significant history of substance abuse and was counseled on abstaining from all substances including alcohol and marijuana. Patient was also counseled on the medications and need for regular compliance and was encouraged to follow-up with their outpatient appointment for mental health and also for primary care. Mental status exam: General Appearance: Patient appears to be tall, stated age is alert, pleasant, and cooperative. Patient is in no acute distress and has improved hygiene and grooming Behavior: Patient is calmly seated without any agitated behavior. Speech: Patient's speech is fluent and nonpressured. Mood/Affect: Patient reports their mood is "better", affect is congruent and euthymic. Suicidality/Homicidality: Patient denies having any suicidal or homicidal ideation intent or plan. Perceptions: Patient denies any auditory or visual hallucinations. Though content/process: There is no evidence of any delusional thought content and thought process is linear and goal-directed. More future oriented Memory and concentration: AOX3, grossly intact for the purposes of this session. Can spell "WORLD" backwards correctly. Judgment and insight: improved with guarded prognosis Impression: bipolar disorder, unspecified history of ptsd history of adhd Plan: -Continue with discharge today as patient has improved and stabilized psychiatrically and is not currently an imminent threat to herself and/or others. -Continue medications: Lamictal 25 mg twice daily for mood stabilization/depression, BuSpar 20 mg twice daily as needed for anxiety, melatonin 6 mg nightly for sleep. Patient was informed of the possibility of a rash from Lamictal, she was informed that she should seek urgent medical attention if this does occur and discontinue the medication, she verbally understood and agreed. -Patient was counseled on the need for medication compliance and appropriate follow-up at mental health and also primary care for medical issues. Patient verbalized understanding and agreed. -Social work to arrange for and conduct family meeting to ensure safety upon discharge and answer any questions/concerns. Social work also to arrange for patients follow up appointments with [facility] for psychiatric care along with follow up with primary care provider. -Patient counseled on abstaining from recreational drugs and marijuana and alcohol. Was informed/educated on the adverse effects on their physical and mental health. Patient verbally agreed and understood. -Patient was instructed to return to the hospital or seek immediate medical care if their psychiatric or medical symptoms do worsen or reoccur. Allergies Allergy/AdvReac Type Severity Reaction Status Date / Time tree nut Allergy Severe Anaphylaxis Verified 09/05/23 05:20 animal dander Allergy Rash/Hives Verified 09/05/23 05:20 Laboratory Results WBC 8.0 k/uL (3.8-10.6) 09/05/23 09:01 RBC 4.63 m/uL (3.80-5.40) 09/05/23 09:01 Hgb 13.9 gm/dL (11.4-16.0) 09/05/23 09:01 Hct 43.1 % (34.0-46.0) 09/05/23 09:01 MCV 93.1 fL (80.0-100.0) 09/05/23 09:01 MCH 30.1 pg (25.0-35.0) 09/05/23 09:01 MCHC 32.3 g/dL (31.0-37.0) 09/05/23 09:01 RDW 12.9 % (11.5-15.5) 09/05/23 09:01 Plt Count 235 k/uL (150-450) 09/05/23 09:01 MPV 8.6 09/05/23 09:01 Neutrophils % 62 % 09/05/23 09:01 Lymphocytes % 29 % 09/05/23 09:01 Monocytes % 5 % 09/05/23 09:01 Eosinophils % 2 % 09/05/23 09:01 Basophils % 0 % 09/05/23 09:01 Neutrophils # 5.0 k/uL (1.3-7.7) 09/05/23 09:01 Lymphocytes # 2.3 k/uL (1.0-4.8) 09/05/23 09:01 Monocytes # 0.4 k/uL (0-1.0) 09/05/23 09:01 Eosinophils # 0.2 k/uL (0-0.7) 09/05/23 09:01 Basophils # 0.0 k/uL (0-0.2) 09/05/23 09:01 Sodium 138 mmol/L (137-145) 09/05/23 09:01 Potassium 4.5 mmol/L (3.5-5.1) 09/05/23 09:01 Chloride 107 mmol/L (98-107) 09/05/23 09:01 Carbon Dioxide 24 mmol/L (22-30) 09/05/23 09:01 Anion Gap 7 mmol/L 09/05/23 09:01 BUN 14 mg/dL (7-17) 09/05/23 09:01 Creatinine 0.67 mg/dL (0.52-1.04) 09/05/23 09:01 Est GFR (CKD-EPI)AfAm >90 (>60 ml/min/1.73 sqM) 09/05/23 09:01 Est GFR (CKD-EPI)NonAf >90 (>60 ml/min/1.73 sqM) 09/05/23 09:01 Glucose 97 mg/dL (74-99) 09/05/23 09:[address] Glu mg/dL 100 mg/dL 09/05/23 09:01 Hemoglobin A1c 5.1 % (<=6.0) 09/05/23 09:01 Calcium 9.6 mg/dL (8.4-10.2) 09/05/23 09:01 Total Bilirubin 0.7 mg/dL (0.2-1.3) 09/05/23 09:01 AST 20 U/L (14-36) 09/05/23 09:01 ALT 13 U/L (4-34) 09/05/23 09:01 Alkaline Phosphatase 76 U/L (38-126) 09/05/23 09:01 Total Protein 7.5 g/dL (6.3-8.2) 09/05/23 09:01 Albumin 4.5 g/dL (3.5-5.0) 09/05/23 09:01 Triglycerides 56.60 mg/dL (0.00-149.00) 09/05/23 09:01 Cholesterol 163.00 mg/dL (0.00-200.00) 09/05/23 09:01 LDL Cholesterol, Calc 87.1 mg/dL (0.0-131.0) 09/05/23 09:01 VLDL Cholesterol, Calc 11.32 mg/dL (5.00-40.00) 09/05/23 09:01 HDL Cholesterol 64.60 mg/dL (40.00-60.00) H 09/05/23 09:01 Cholesterol/HDL Ratio 2.52 Ratio 09/05/23 09: TSH 0.966 mIU/L (0.465-4.680) 09/05/23 09:01 Urine Color Light Yellow 09/05/23 06:05 Urine Appearance Cloudy (Clear) H 09/05/23 06:05 Urine pH 6.0 (5.0-8.0) 09/05/23 06:05 Ur Specific [place] 1.024 (1.001-1.035) 09/05/23 06:05 Urine Protein Trace (Negative) H 09/05/23 06:05 Urine Glucose (UA) Negative (Negative) 09/05/23 06:05 Urine Ketones Negative (Negative) 09/05/23 06:05 Urine Blood Small (Negative) H 09/05/23 06:05 Urine Nitrite Positive (Negative) H 09/05/23 06:05 Urine Bilirubin Negative (Negative) 09/05/23 06:05 Urine Urobilinogen <2.0 mg/dL (<2.0) 09/05/23 06:05 Ur Leukocyte Esterase Negative (Negative) 09/05/23 06:05 Urine RBC <1 /hpf (0-5) 09/05/23 06:05 Urine WBC 11 /hpf (0-5) H 09/05/23 06:05 Ur Squamous Epith Cells 2 /hpf (0-4) 09/05/23 06:05 Amorphous Sediment Rare /hpf (None) H 09/05/23 06:05 Urine Bacteria Many /hpf (None) H 09/05/23 06:05 Hyaline Casts 1 /lpf (0-2) 09/05/23 06:05 Urine Mucus Occasional /hpf (None) H 09/05/23 06:05 Urine HCG, Qual Not Detected (Not Detectd) 09/05/23 06:05 Urine Opiates Screen Detected (NotDetected) H 09/05/23 06:05 Ur Oxycodone Screen Not Detected (NotDetected) 09/05/23 06:05 Urine Methadone Screen Not Detected (NotDetected) 09/05/23 06:05 Ur Barbiturates Screen Not Detected (NotDetected) 09/05/23 06:05 U Tricyclic Antidepress Not Detected (NotDetected) 09/05/23 06:05 Ur Phencyclidine Scrn Not Detected (NotDetected) 09/05/23 06:05 Ur Amphetamines Screen Detected (NotDetected) H 09/05/23 06:05 U Methamphetamines Scrn Not Detected (NotDetected) 09/05/23 06:05 U Benzodiazepines Scrn Not Detected (NotDetected) 09/05/23 06:05 Urine Cocaine Screen Not Detected (NotDetected) 09/05/23 06:05 U Marijuana (THC) Screen Not Detected (NotDetected) 09/05/23 06:05 SARS-CoV-2 (PCR) Not Detected (Not Detectd) 09/05/23 02:26 Vital Signs Temp 98.2 F 09/09/23 06:38 Pulse 59 L 09/09/23 06:38 Resp 14 09/09/23 06:38 BP 88/54 09/09/23 06:38 Pulse Ox 98 09/09/23 06:38 FiO2 Patient Condition at Discharge: Stable Plan - Discharge Summary Discharge Rx Participant: Yes New Discharge Prescriptions: New Sulfamethox-Tmp 800-160Mg [Bactrim DS 800-160 mg] 1 each PO BID 5 Days #10 tab busPIRone HCl [Buspar] 20 mg PO BID PRN 30 Days #120 tab PRN Reason: Anxiety Nicotine 14Mg/24Hr Patch [Habitrol] 1 patch TRANSDERM DAILY patch Melatonin 6 mg PO HS 30 Days #60 tab Acetaminophen Tab [Tylenol] 650 mg PO Q4HR PRN tab PRN Reason: Mild Pain (Scale 1 To 3) lamoTRIgine [LaMICtal] 25 mg PO BID 30 Days #60 tab Albuterol Inhaler [Ventolin Hfa Inhaler] 2 puff INHALATION RT-QID PRN #0 each PRN Reason: Shortness Of Breath Or Wheezing Discontinued Amoxicillin 875 mg PO Q12HR #20 tablet Sulfamethox-Tmp 800-160Mg [Bactrim DS 800-160 mg] 1 tab PO Q12HR 7 Days #14 tab Ibuprofen [Motrin Ib] 400 mg PO Q8H PRN PRN Reason: Pain Or Fever > 100.5 Ondansetron Odt [Zofran Odt] 4 mg PO Q8HR PRN #15 tab PRN Reason: Nausea And Vomiting Discharge Medication List Acetaminophen Tab [Tylenol] 650 mg PO Q4HR PRN tab 09/09/23 [Rx] Albuterol Inhaler [Ventolin Hfa Inhaler] 2 puff INHALATION RT-QID PRN #0 each 09/09/23 [Rx] Melatonin 6 mg PO HS 30 Days #60 tab 09/09/23 [Rx] Nicotine 14Mg/24Hr Patch [Habitrol] 1 patch TRANSDERM DAILY patch 09/09/23 [Rx] Sulfamethox-Tmp 800-160Mg [Bactrim DS 800-160 mg] 1 each PO BID 5 Days #10 tab 09/09/23 [Rx] busPIRone HCl [Buspar] 20 mg PO BID PRN 30 Days #120 tab 09/09/23 [Rx] lamoTRIgine [LaMICtal] 25 mg PO BID 30 Days #60 tab 09/09/23 [Rx] Follow up Appointment(s)/Referral(s): [facility] [Outside] - 09/10/23 12:30 pm (with [place]) Armando Lopez MD [Primary Care Provider] - 1-2 days Activity/Diet/Wound Care/Special Instructions: Avoid the use of street drugs and alcohol. Take all medications as prescribed. When you are in need of refills on your medications, please contact your medical provider and/or outpatient psychiatrist/provider to have this done. Please go to your scheduled outpatient appointment for aftercare treatment. If symptoms return or become worse, call the crisis line at and/or go to the nearest emergency room for evaluation. National Suicide Hotline 988 Discharge Disposition: HOME SELF-CARE
== END 2023-09-09 11:55 | disposition home or self-care (01) | DRG 753 ==
LOC: EC 23:04 → 3MHU 09-05 03:29
PROVIDERS: ADMIT Psychiatry & Neurology Psychiatry; ATTEND Psychiatry & Neurology Psychiatry
DX: F31.9 Bipolar disorder, unspecified (principal); R45.851 Suicidal ideations; J45.909 Unspecified asthma, uncomplicated; R82.71 Bacteriuria; F41.0 Panic disorder [episodic paroxysmal anxiety]; F43.10 Post-traumatic stress disorder, unspecified; F90.9 Attention-deficit hyperactivity disorder, unspecified type; Z79.899 Other long term (current) drug therapy; Z91.51 Personal history of suicidal behavior; Z87.440 Personal history of urinary (tract) infections
CPT/HCPCS: 80053; 80061; 80306; 81001; 81025; 82075; 83036; 84443; 85025; 87077; 87086; 87186; 87635; 99285